=== PATIENT | female | born 1990 | race Hispanic/Latino ===

== ENCOUNTER 2024-05-12 10:40 | Emergency (ER) | payer MEDICAID, OTHER ==
[~2024-05-12] VITALS: Ht 154.9 cm; Wt 59.0 kg
[~2024-05-12 10:40] MED LIST: PNV1TABL17 PO; RANI-662 PO
[2024-05-12] MEDS: LIDOCAINE HCL 2% VISCOUS 15 ML UDCUP PO ONE (11:07)
[2024-05-12] MEDS: 0.9%NACL 1000ML 1,000 ML IV ONE (11:08)
[2024-05-12 11:22] LABS: APPEARANCE,URINE CLEAR (CLEAR); BILIRUBIN,URINE NEGATIVE (NEGATIVE); COLOR,URINE COLORLESS (YELLOW); GLUCOSE, URINE (UA) NEGATIVE (NEGATIVE); KETONES,URINE NEGATIVE (NEGATIVE); LEUKOCYTE ESTERASE ,URINE NEGATIVE Leu/uL (NEGATIVE); NITRATE,URINE NEGATIVE (NEGATIVE); OCCULT BLOOD,URINE NEGATIVE (NEGATIVE); PH,URINE 6.5 (5.0-8.0); PROTEIN,URINE NEGATIVE (NEGATIVE); UROBILINOGEN,URINE 0.2 mg/dL (0.2-1.0)
[2024-05-12 11:23] LABS: HCG,QUALITATIVE URINE NEGATIVE (NEGATIVE)
[2024-05-12 11:24] LABS: BASOPHILS # (AUTO) 0.08 K/uL (0.00-0.20); BASOPHILS % (AUTO) 1.1 % (0.0-5.0); EOSINOPHILS # (AUTO) 0.24 K/uL (0.00-0.70); EOSINOPHILS % (AUTO) 3.4 % (0.0-8.0); HEMATOCRIT 43.5 % (36-48); IMMATURE GRANULOCYTE ABSOLUTE 0.05 K/uL (0-1); LYMPHOCYTES # (AUTO) 2.9 K/uL (1.0-4.8); LYMPHOCYTES % (AUTO) 41.2 % (21.0-51.0); MEAN CORPUSCULAR HEMOGLOBIN 30.3 pg (27.0-33.0); MEAN CORPUSCULAR HGB CONC 33.1 g/dL (32.0-36.0); MEAN CORPUSCULAR VOLUME 91.6 fL (79-99); MONOCYTES # (AUTO) 0.5 K/uL (0.1-1.0); NEUTROPHILS # (AUTO) 3.3 K/uL (1.8-7.7); NEUTROPHILS % (AUTO) 46.6 % (40.0-77.0); PLATELET COUNT (AUTO) 481 K/uL (130-400); RED BLOOD CELL COUNT(AUTO) 4.75 MIL/uL (4.00-5.50); RED CELL DISTRIBUTION WIDTH 14.2 % (11.0-15.5)
[2024-05-12 11:34] LABS: ALBUMIN 3.7 g/dL (3.5-5.0); BILIRUBIN,TOTAL 0.3 mg/dL (0.2-1.0); CREATININE 0.7 mg/dL (0.5-1.0); POTASSIUM 3.9 mmol/L (3.5-5.1); TOTAL PROTEIN, SERUM 7.6 g/dL (6.0-8.3)
[2024-05-12 11:40] LABS: ADD UA MICROSCOPIC NO
[2024-05-12] MEDS ORDERED: IOHEXOL-350 75 ML VIAL IV ONE (12:23)
[2024-05-12 13:46] VITALS: BP 116/70; PULSE 80; RESP 16; O2SAT 100
== END 2024-05-12 13:56 | disposition home or self-care (01) ==
LOC: EDH 10:40
DX: R10.9 Unspecified abdominal pain (principal); R14.0 Abdominal distension (gaseous); J45.909 Unspecified asthma, uncomplicated; Z79.899 Other long term (current) drug therapy; Z88.8 Allergy status to other drugs, medicaments and biological substances; Z90.89 Acquired absence of other organs
CPT/HCPCS: 99285; 74177; 96360; 80053; 83690; 85025; 81003; 81025; 36415; J7030; Q9967

== ENCOUNTER 2024-08-29 21:49 | Emergency (ER) | payer SELFPAY ==
[~2024-08-29] VITALS: Ht 154.9 cm; Wt 61.2 kg
[2024-08-29 22:56] LABS: BASOPHILS # (AUTO) 0.08 K/uL (0.00-0.20); EOSINOPHILS # (AUTO) 0.42 K/uL (0.00-0.70); EOSINOPHILS % (AUTO) 10.3 % (0.0-8.0); HEMATOCRIT 38.8 % (36-48); LYMPHOCYTES # (AUTO) 2.3 K/uL (1.0-4.8); LYMPHOCYTES % (AUTO) 57.2 % (21.0-51.0); MEAN CORPUSCULAR HGB CONC 33.2 g/dL (32.0-36.0); MEAN CORPUSCULAR VOLUME 90.2 fL (79-99); MONOCYTES # (AUTO) 0.5 K/uL (0.1-1.0); MONOCYTES % (AUTO) 12.8 % (3.0-13.0); NEUTROPHILS # (AUTO) 0.7 K/uL (1.8-7.7); NEUTROPHILS % (AUTO) 17.7 % (40.0-77.0); PLATELET COUNT (AUTO) 324 K/uL (130-400); RED CELL DISTRIBUTION WIDTH 14.1 % (11.0-15.5); WHITE BLOOD COUNT (AUTO) 4.1 K/uL (4.8-10.8)
[2024-08-29 23:04] LABS: CREATININE 0.7 mg/dL (0.5-1.0)
[2024-08-29] MEDS: ketOROlac 15MG/ML VIAL (15MG/ML) IV ONE (23:10)
[2024-08-29 23:23] LABS: SARS-CoV-2, RNA, NAAT NEGATIVE SARS CoV-2 (NEGATIVE)
[2024-08-29 23:31] LABS: RAPID GROUP A STREP negative (NEGATIVE)
[2024-08-29 23:34] LABS: INFLUENZA TYPE A Negative For Type A (NEGATIVE); INFLUENZA TYPE B Negative For Type B (NEGATIVE)
[2024-08-29 23:58] LABS: BASOPHILS % (MANUAL) 1 % (0-2); EOSINOPHILS % (MANUAL) 13 % (1-6); LYMPHOCYTES % (MANUAL) 66 % (22-44); MAN.DIFF COMMENT-IMPRESSION MANUAL DIFFERENTIAL; MONOCYTES % (MANUAL) 6 % (2-9); REACTIVE LYMPHOCYTES 1 % (0-0); SEGMENTED NEUTROPHILS % 13 % (40-70); TOTAL CELLS COUNTED 100
[2024-08-30 00:01] LABS: PLATELET MORPHOLOGY COMMENT ADEQUATE
[2024-08-30 00:04] LABS: WBC MORPHOLOGY VACUOLATION 2+
[2024-08-30] MEDS ORDERED: KETO10TA2 PO (00:41)
[2024-08-30] MEDS: dexaMETHasone SOD PHOSPHATE 4 MG/ML 1ML VIAL IVP ONE (00:41)
[2024-08-30 00:42] VITALS: BP 116/74; PULSE 68; RESP 18; TEMP 98.5; O2SAT 98
== END 2024-08-30 01:01 | disposition home or self-care (01) ==
LOC: EDH 21:49
DX: R59.0 Localized enlarged lymph nodes (principal); B34.9 Viral infection, unspecified; Z20.822 Contact with and (suspected) exposure to COVID-19; Z88.8 Allergy status to other drugs, medicaments and biological substances; Z79.899 Other long term (current) drug therapy
CPT/HCPCS: 99285; 96374; 70450; 87635; 80048; 84703; 85025; 87880; 87804 ×2; 36415; 96375; J1885; J1100